=== PATIENT | male | born 1950 | race Caucasian/White ===

== ENCOUNTER → 2018-02-08 | Outpatient (CLI) | payer BC | LOC: M WUC 10:55 | DX: M79.672 Pain in left foot (principal) | CPT/HCPCS: 73630 ==

== ENCOUNTER → 2018-12-24 | Outpatient (CLI) | payer MEDICARE ==
--- NOTE | 2018-12-24 11:38 | REP ---
LEFT LOWER EXTREMITY DUPLEX DOPPLER VENOUS ULTRASOUND: Real-time compression and duplex Doppler interrogation of the left lower extremity deep venous system is performed. Left common femoral and superficial femoral veins are fully compressible with transducer pressure and demonstrate normal spontaneous and phasic flow without no deep vein thrombosis. However, there is nonocclusive thrombus in the left popliteal vein. IMPRESSION: Nonocclusive thrombus left popliteal vein. Electronically Signed by Gerard Neff MD 12/27/2018 11:14 A
== END ==
LOC: M RAD 09:40
PROVIDERS: ATTEND Physician Assistant
DX: R22.42 Localized swelling, mass and lump, left lower limb (principal)